=== PATIENT | female | born 1955 | race Caucasian/White ===

== ENCOUNTER 2019-07-14 15:31 | Emergency (ER) | payer OTHER, SELFPAY ==
--- NOTE | ~2019-07-14 | US_ITS ---
EXAMINATION: US venous doppler LE RT EXAM DATE: 07/14/2019 16:32 INDICATION: Cat bite, right leg pain. TECHNIQUE: Multiple grayscale, color flow and Doppler images of the right lower extremity deep venous system were obtained and reviewed. There is no prior study for comparison. FINDINGS: The right common femoral, femoral and profunda veins demonstrate normal color flow, respira tory variation, augmentation and compressibility. Compressibility, color flow confirmed within the r ight popliteal, posterior tibial, peroneal, and greater saphenous veins. There is a right inguinal l ymph node measuring 1.4 x 0.8 cm, reactive. IMPRESSION: 1. No right lower extremity deep venous thrombosis. Reviewed, dictated and finalized at location A.
--- NOTE | ~2019-07-14 | XR_ITS ---
EXAMINATION: XR tibia fibula RT 2V EXAM DATE: 07/14/2019 17:17 INDICATION: Cat bite with right lower leg swelling. TECHNIQUE: Right tibia/fibula frontal and lateral projections obtained and reviewed. There is no andre or study for comparison. FINDINGS: Right tibial and fibular shafts unremarkable. There are no acute fractures or dislocations identified. There is no subcutaneous gas. The soft tissue is unremarkable. There are no radiopaq ue foreign bodies. IMPRESSION: 1. Unremarkable XR tibia fibula RT 2V exam. Reviewed, dictated and finalized at location A.
[2019-07-14 15:40] VITALS: BP 120/82; PULSE 52; RESP 16; TEMP 36.6; O2SAT 97
--- NOTE | 2019-07-14 15:41 | PC.NURSE ---
please see downtime charting for information
[2019-07-14 16:02] LABS: Hematocrit 43.2 % (37.0-47.0); Hemoglobin 14.3 g/dL (12.0-15.0); Mean Corpuscular HGB Conc 33.1 g/dl (32-36); Mean Corpuscular Hemoglobin 32.2 pg (26-34); Mean Corpuscular Volume 97.3 fl (80-100); Mean Platelet Volume 10.4 fl (7.4-10.4); Platelet Count Result 219 k/mm3 (150-375); Red Blood Count 4.44 M/mm3 (4.2-5.4); White Blood Count 11.7 K/mm3 (4.5-10.0)
--- NOTE | 2019-07-14 16:07 | ED.GENADULT ---
HPI - General Adult General Chief complaint: Wound/Laceration Stated complaint: . Time Seen by Provider: 07/14/19 15:52 Source: patient and family Mode of arrival: ambulatory Limitations: no limitations History of Present Illness HPI narrative: Patient is a 64-year-old female who presents for evaluation of wound to right lower extremity. Patient reports she was either bitten or scratched by her cat at home after he was startled yesterday. Patient has had redness, swelling on the outside of her right leg, now has radiating pain from her calf into her right thigh. There is mild blistering of the wound. No purulent discharge. Patient reports she has had subjective fever today. She has had some nausea without vomiting. She reports feeling generally weak without any focal deficits, numbness. Patient has been ambulatory. No vision changes. Mild headache. Patient is up-to-date on her tetanus. Related Data Allergies Allergy/AdvReac Type Severity Reaction Status Date / Time ciprofloxacin Allergy Unknown Unknown Verified 02/07/19 09:25 Sulfa (Sulfonamide Allergy Unknown Unknown Verified 02/07/19 09:25 Antibiotics) Review of Systems Review of Systems: Narrative: CONSTITUTIONAL: Reports subjective fever and chills EYES: Denies visual changes, redness, or discharge. ENT: Denies rhinorrhea, congestion, sore throat, or otalgia. CARDIOVASCULAR: Denies chest pain, palpitations, or edema. RESPIRATORY: Denies cough or dyspnea. GASTROINTESTINAL: Reports mild abdominal pain in the lower abdomen, reports nausea without vomiting GENITOURINARY: Denies dysuria or hematuria. SKIN: Reports rash and wound on the outside of the right lower extremity MUSCULOSKELETAL: Denies back pain, joint pain, or myalgia. NEUROLOGIC: Denies headache, numbness, reports feeling diffusely weak, no numbness PMFSH Past Medical History Medical History (Updated 07/14/19 @ 18:23 by Sarina Farah MD) Cancer of neck GI bleed Surgical History Surgical History (Updated 07/14/19 @ 16:10 by Sarina Farah MD) H/O neck surgery Social History Social History Smoking status: Never smoker Alcohol intake: current Gender identity (if verbalized by the patient): Female Exam Narrative: Exam Narrative: GENERAL: Awake, alert, conversant HEAD: Normocephalic, atraumatic. EYES: PERRLA and EOMI. ENT: Nares clear, no rhinorrhea or epistaxis. Mucous membranes moist. Surgical changes right sided neck. NECK: Supple. CHEST: No respiratory distress, breathing even and non labored HEART: Regular rate, sinus rhythm ABDOMEN:Non distended, mild suprapubic tenderness, nonrigid, no guarding EXTREMITIES: Normal range of motion. No edema. SKIN: Erythema, rash approximately 4 cm x 5 cm to lateral aspect right lower extremity, some blistering present, no streaking erythema, positive tenderness, puncture wound is present, no purulent discharge, no crepitus, no ecchymoses. No calf tenderness. Mild right thigh tenderness. NEURO:No focal deficits. Alert and oriented x3 Course Course Emergency Course: Patient presented to the emergency department for evaluation of cat bite versus scratch. Patient at the time of assessment has findings concerning for cellulitis on the lateral aspect of her right lower extremity. No sign of abscess or foreign body. Imaging is reassuring. Patient with mild leukocytosis. No electrolyte abnormality. Patient was given IV fluids, Tylenol, Zofran with much improvement in her symptoms. She is able to tolerate a first dose of antibiotic in the ER, and at this point, I do not feel the cellulitis is severe enough that patient should be admitted to the hospital. We can do a trial of outpatient antibiotics at this point. Patient does not have a UTI. No recurrent abdominal pain or vomiting, thus I do not feel we need to obtain a CT of the abdomen or pelvis. Patient was then discharged home with antibio
[2019-07-14 16:17] LABS: Lactic Acid Reflex 1.6 mmol/L (0.7-2.1)
[2019-07-14 16:18] LABS: Alanine Aminotransferase 28 U/L (4-35); Albumin Level 4.6 g/dL (3.5-5.1); Alkaline Phosphatase 59 U/L (38-126); Aspartate Amino Transferase 35 U/L (14-36); Bilirubin,Total 0.7 mg/dL (0.2-1.3); Blood Urea Nitrogen 14 mg/dL (7-17); Calcium 9.4 mg/dL (8.4-10.2); Carbon Dioxide 30 mmol/L (22-30); Chloride 100 mmol/L (98-107); Estimated Glomerular Filt Rate > 60; Glucose 111 mg/dL (65-105); Potassium 3.5 mmol/L (3.4-5.0); Sodium 136 mmol/L (137-145)
[2019-07-14 16:26] LABS: Band Neutrophils Percent 7 % (0-6); Lymphocytes Absolute Manual 0.58 K/mm3 (1.1-4.5); Monocytes Absolute Manual 0.46 K/mm3 (0.1-0.90); Monocytes Percent Manual 4 % (3-9); Neutrophils Absolute Manual 10.64 K/mm3 (1.7-7.2); Neutrophils Percent Manual 84 % (46-73); Total Cells Counted 100
[2019-07-14 16:27] LABS: Platelet Estimate Adequate (Adequate)
[2019-07-14 16:33] LABS: Erythrocyte Sedimentation Rate 7 mm/hr (0-20)
[2019-07-14] MEDS: SODIUM CHLORIDE 0.9% IV 1,000 ML 999 ML IV CONT (16:37)
[2019-07-14] MEDS: ONDANSETRON INJ 4 MG/2 ML VIAL IV PUSH (16:37)
[2019-07-14 16:39] LABS: CRP < 0.5 mg/dL (<1.0)
[2019-07-14] MEDS: DOXYCYCLINE HYCLATE 100 MG TABLET PO (17:56)
[2019-07-14 17:57] VITALS: BP 142/84; PULSE 80; RESP 16; O2SAT 98
[2019-07-14 17:58] LABS: Add Urine Microscopic? YES; Appearance Urine Clear (Clear); Bilirubin Urine Negative (Negative); Blood Urine Negative (Negative); Color Urine Yellow (Yellow); Glucose Urine UA Negative (Negative); Ketones Urine Trace mg/dL (Negative); Leukocyte Esterase Ur Negative LEU/UL (Negative); Mucus Urine Rare /lpf; Nitrate Urine Negative (Negative); Protein Urine Negative (Negative); Specific Grav Ur 1.017 (1.001-1.035); Urobilinogen Urine Negative mg/dL (<2.0); WBC Urine 0-3 /hpf
== END 2019-07-14 19:03 | disposition home or self-care (01) ==
PROVIDERS: Emergency Medicine; Emergency Provider Emergency Medicine
DX: L03.115 Cellulitis of right lower limb (principal)
CPT/HCPCS: 36415; 73590; 80053; 81001; 83605; 85025; 85652; 86140; 87040; 93971; 96374; 96375; 99284; A9270; J0131; J2405; J7030

== ENCOUNTER 2019-11-28 15:59 | Emergency (ER) | payer OTHER, SELFPAY ==
--- NOTE | 2019-11-28 16:05 | ED.GENADULT ---
HPI - General Adult General Chief complaint: Animal Bite Stated complaint: cat bite Time Seen by Provider: 11/28/19 16:05 Source: patient Mode of arrival: ambulatory Limitations: no limitations History of Present Illness HPI narrative: 64-year-old female patient presents to the [facility] with complaints of a bite from her cat to the left hand that occurred last night. Patient states this morning it started getting more red and swollen and wanted to get it checked out before it got infected. Patient states she has been washing it with soap and water as well as putting Neosporin on it and covering it with a Band-Aid. Patient states she is up-to-date on her tetanus shot. Patient states her cat is a few months from the rabies shot. Patient denies being diabetic. Patient denies any fevers body aches or chills. Related Data Home Medications Medication Instructions Recorded Confirmed Vitamin B-6 11/28/19 Vitamin D3 Complete 11/28/19 psyllium husk [Metamucil] PO 11/28/19 Allergies Allergy/AdvReac Type Severity Reaction Status Date / Time ciprofloxacin Allergy Unknown Unknown Verified 11/28/19 16:12 Sulfa (Sulfonamide Allergy Unknown Unknown Verified 11/28/19 16:12 Antibiotics) Review of Systems Review of Systems: Narrative: CONSTITUTIONAL: Denies fever, chills, or sweats. EYES: Denies visual changes, redness, or discharge. ENT: Denies rhinorrhea, congestion, sore throat, or otalgia. CARDIOVASCULAR: Denies chest pain, palpitations, or edema. RESPIRATORY: Denies cough or dyspnea. GASTROINTESTINAL: Denies abdominal pain, nausea, vomiting, or diarrhea. GENITOURINARY: Denies dysuria or hematuria. SKIN: Denies rash or itching. Positive cat bite wound to left hand MUSCULOSKELETAL: Denies back pain, joint pain, or myalgia. NEUROLOGIC: Denies headache, numbness, or weakness. PSYCHIATRIC: Denies anxiety or depression. [facility] Past Medical History Medical History (Updated 11/28/19 @ 16:21 by ARACELI Beltran) Cancer of neck GI bleed Surgical History Surgical History H/O neck surgery Social History Social History Smoking status: Never smoker Alcohol intake: current Gender identity (if verbalized by the patient): Female Comments At the time of my signature I agree with nursing past medical history, surgical, social, and family history. There is no relevant family history pertinent to the presenting complaint. Exam Narrative: Exam Narrative: GENERAL: Well-appearing, well-nourished, and in no acute distress. HEAD: Normocephalic, atraumatic. EYES: PERRLA and EOMI. ENT: Nares clear, no rhinorrhea or epistaxis. Mucous membranes moist. NECK: Supple. No lymphadenopathy CHEST: Clear to auscultation. No respiratory distress. HEART: Regular rate and rhythm. No murmur heard. Normal peripheral pulses. ABDOMEN: Soft, nontender, nondistended, normal active bowel sounds. EXTREMITIES: Normal range of motion. No edema. SKIN: Warm, dry, no rash. Patient has a small puncture wound elvira over the third MCP joint. Slight erythema and swelling noted but no warmth noted to the touch. No open area or discharge noted. Patient has excellent range of motion to the fingers and hand. NEURO: No focal deficits. Alert and oriented x3. Course Vital Signs Vital signs: Vital signs reviewed. Medical Decision Making Differential Diagnosis Differential Diagnosis: Differential diagnosis: Abscess, cellulitis, hidradenitis, laceration, puncture wound. Discussed with patient I would recommend to continue to clean it with soap and water, apply the Neosporin as needed and keep it covered. Discussed with patient we will go ahead and discharge her home with some antibiotics, no need for tetanus shot today due to the fact that she is updated. Discussed with patient that if it continues to get worse including red streaking g
[2019-11-28 16:15] VITALS: BP 104/77; PULSE 84; RESP 16; TEMP 36.9; O2SAT 98
== END 2019-11-28 16:29 | disposition home or self-care (01) ==
PROVIDERS: Emergency Provider Nurse Practitioner Family
DX: S61.452A Open bite of left hand, initial encounter (principal); W55.01XA Bitten by cat, initial encounter
CPT/HCPCS: 99213; G0463